=== PATIENT | male | born 1970 | race Hispanic/Latino ===

== ENCOUNTER 2023-06-12 04:22 | Emergency (ER) | payer BC ==
[~2023-06-12] VITALS: Ht 170.2 cm; Wt 127.0 kg
[2023-06-12] MEDS: ONDANSETRON 4MG INJ ONE (05:04)
[2023-06-12] MEDS: 0.9%NACL 1000ML 1,000 ML IV ONE (05:04)
[2023-06-12] MEDS: ONDANSETRON 4MG INJ IVP ONE (05:04)
[2023-06-12 05:26] LABS: BASOPHILS # (AUTO) 0.03 K/uL (0.00-0.20); BASOPHILS % (AUTO) 0.3 % (0.0-5.0); EOSINOPHILS # (AUTO) 0.26 K/uL (0.00-0.70); EOSINOPHILS % (AUTO) 2.4 % (0.0-8.0); HEMATOCRIT 43.1 % (42-54); IMMATURE GRANULOCYTE ABSOLUTE 0.08 K/uL (0-1); LYMPHOCYTES # (AUTO) 1.6 K/uL (1.0-4.8); LYMPHOCYTES % (AUTO) 14.5 % (21.0-51.0); MEAN CORPUSCULAR HEMOGLOBIN 32.2 pg (27.0-33.0); MEAN CORPUSCULAR VOLUME 91.9 fL (79-99); MONOCYTES # (AUTO) 0.9 K/uL (0.1-1.0); MONOCYTES % (AUTO) 7.8 % (3.0-13.0); NEUTROPHILS # (AUTO) 8.2 K/uL (1.8-7.7); NEUTROPHILS % (AUTO) 74.3 % (40.0-77.0); PLATELET COUNT (AUTO) 287 K/uL (130-400); RED BLOOD CELL COUNT(AUTO) 4.69 MIL/uL (4.50-6.20); RED CELL DISTRIBUTION WIDTH 13.1 % (11.0-15.5)
[2023-06-12 05:29] LABS: CREATININE 1.2 mg/dL (0.5-1.3); POTASSIUM 4.1 mmol/L (3.5-5.1)
[2023-06-12 05:35] LABS: BILIRUBIN,TOTAL 0.7 mg/dL (0.2-1.0); TOTAL PROTEIN, SERUM 7.3 g/dL (6.0-8.3)
[2023-06-12] MEDS: KETOROLAC 30MG VIAL (30MG/ML) IVP ONE (05:37)
[2023-06-12 05:57] LABS: APPEARANCE,URINE CLEAR (CLEAR); BILIRUBIN,URINE NEGATIVE (NEGATIVE); COLOR,URINE LIGHT-YELLOW (YELLOW); GLUCOSE, URINE (UA) NEGATIVE (NEGATIVE); KETONES,URINE NEGATIVE (NEGATIVE); LEUKOCYTE ESTERASE ,URINE NEGATIVE Leu/uL (NEGATIVE); NITRATE,URINE NEGATIVE (NEGATIVE); OCCULT BLOOD,URINE LARGE (NEGATIVE); PROTEIN,URINE NEGATIVE (NEGATIVE); UROBILINOGEN,URINE 0.2 mg/dL (0.2-1.0)
[2023-06-12] MEDS: MORPHINE 2 MG SYG IVP ONE ×2 (05:57→06:30)
[2023-06-12 05:59] LABS: ADD UA MICROSCOPIC YES
[2023-06-12] MEDS ORDERED: KETOROLAC 30MG VIAL (30MG/ML) IV ONE (06:00)
[2023-06-12 06:01] LABS: BACTERIA,URINE FEW /HPF (None Seen); MUCUS,URINE RARE LPF (None Seen); RBC,URINE 51-100 /HPF (0-1); SQUAMOUS EPITHELIAL CELL,UR RARE /HPF (0-2)
[2023-06-12] MEDS: MORPHINE 2 MG SYG ONE (06:01)
[2023-06-12] MEDS: TAMSULOSIN HCL 0.4 MG CAP.ER.24H PO ONE (06:29)
[2023-06-12] MEDS: ACETAMINOPHEN 500 MG TABLET PO ONE (08:36)
[2023-06-12 09:17] VITALS: BP 125/61; PULSE 74; RESP 17; O2SAT 96
[2023-06-12] MEDS ORDERED: ACET-2079 PO (09:26)
[2023-06-12] MEDS ORDERED: TAMS-1 PO (09:26)
[2023-06-12] MEDS ORDERED: IBUP-2070 PO (09:26)
== END 2023-06-12 09:36 | disposition home or self-care (01) ==
LOC: EDH 04:22
DX: I10 Essential (primary) hypertension (principal); E03.9 Hypothyroidism, unspecified; E78.00 Pure hypercholesterolemia, unspecified; N20.1 Calculus of ureter; Z87.19 Personal history of other diseases of the digestive system; Z90.49 Acquired absence of other specified parts of digestive tract
CPT/HCPCS: 99284; 74176; 96374; 96375; 96361; 80053; 85025; 81001; 36415; 96376; J2270 ×2; J7030; J2405; J1885